=== PATIENT | male | born 1970 | race Caucasian/White ===

== ENCOUNTER 2020-06-26 14:17 | Emergency (ER) | payer OTHER ==
--- OUTSIDE RECORDS SUMMARY | 2020-06-26 14:22 | XMS REPORT | Continuity of Care Document ---
:1970 Author Organization [facility] t Address [address] [place] [address] Care Team Providers Name Role Phone Unavailable Unavailable Unavailable Payers Payer Name Policy Type Policy Number Effective Date Expiration Date S ource Problems Condition Condition Condition Status Onset Resolution Last Treating Co mments Source Name Details Category Date Date Treatment Clinician Date Decreased Decreased Problem Active [facility] testostero testostero [facility] - ne level ne level [facility] Cervical Cervical Diagnosis Active [facility] radiculopa radiculopa [facility] kes - thy thy Memoria l [facility] Gastric Gastric Problem Active [facility] polyps polyps [facility] Chronic Chronic Problem Active [facility] cough cough [facility] Diaphragma Diaphragma Diagnosis Active [facility] tic hernia tic hernia Pauline kes - without without Memoria obstructio obstructio l n or n or Outpati gangrene gangrene ent Clinics Allergic Allergic Problem [facility]initis, [facility]initis, [facility] - seasonal seasonal Memori a l [facility] ent [facility] Decreased Decreased Problem Active [facility] libido libido [facility] Elevated Elevated Problem [facility] blood blood [facility] - pressure pressure Memori a (not (not l hypertensi hypertensi Ou tpati on) on) ent Clinics Erectile Erectile Problem Active [facility] dysfunctio dysfunctio [facility] - n n [facility] Mixed Mixed Problem Active [facility] hyperlipid hyperlipid [facility] kes - emia emia [facility] Anxiety Anxiety Diagnosis Active [facility] disorder, disorder, [facility] - unspecifie unspecifie Me moria d type d type l [facility] Cervical Cervical Diagnosis Active [facility] herniated herniated Luke [facility] - disc disc Memoria l [facility] Partial Partial Diagnosis [facility] tear of tear of [facility] - left left Memoria subscapula subscapula l ris ris Outpati tendon, tendon, ent initial initial Clinics encounter encounter Cervical Cervical Diagnosis Active [facility] stenosis stenosis [facility] - of spinal of spinal Burton eric canal canal l [facility] Screen for Screen for Diagnosis Active [facility] colon colon [facility] - cancer cancer Memoria l [facility] Left Left Diagnosis Active [facility] anterior anterior [facility] - shoulder shoulder Memori a pain pain l [facility] GERD GERD Diagnosis Active [facility] (gastroeso (gastroeso Pauline kes - phageal phageal Memoria reflux reflux l disease) disease) Outpat i ent Clinics Allergies, Adverse Reactions, Alerts Allergy Allergy Status Severity Reaction(s) Onset Inactive Treating Comm ents Source Name Type Date Date Clinician No Known DA Active [facility] Medications Ordered Filled Start Stop Current Ordering Indication Dosage Frequency Signature Comments Components Source Medication Medication Date Date Medication? Clinician (SIG) Name Name Pantoprazol Pantoprazol Yes Suhas [address] [facility] e Sodium e Sodium [facility]a [facility] Tadalafil Tadalafil Yes Suhas take [address] [place] tablet by [facility] - mouth Memoria every day l as needed [facility] Zantac Zantac Yes Suhas 1 tablet [facility] [place] at bedtime [facility] BusPIRone BusPIRone Yes Suhas [address] [facility] HCl HCl Pineda [facility]ics Immunizations Ordered Filled Immunization Date Status Comments Sourc e Immunization Name Name TDAP- Boostrix TDAP- Boostrix 2019-07-[address] [facility] Procedures This patient has no known procedures. Encounters Start End Encounter Admission Attending Care Care Encounter Source Date/Time Date/Time Type Type Clinicians Facility Department ID 2020-05-09 2020-05-09 [facility] [id number] [facility] [place] - Drive [facility] Medicine l Medicine Outpati ent Clinics 2020-03-01 2020-03-01 [facility] [id number] [address] 15:07:00 15:07:[address] Luke [place] - Drive [facility] l Medicine Outpati ent Clinics 2020-01-25 2020-01-25 [facility] [id number] [address] 08:15:[facility] 08:15:[address] Luke [place] - Drive [facility] Medicine l Medicine Outpati ent Clinics 2019-12-09 2019-12-09 [facility] [id number] 15:26:00 15:26:[address] Luke [place] - Drive [facility] l Medicine Outpati ent Clinics 2019-10-28 2019-10-28 [facility] [id number] [address] 12:22:00 12:22:00 [place] [employer] Luke s - Drive [facility] l Medicine Outpati ent Clinics 2019-10-21 2019-10-21 [facility] [id number] [address] 16:05:00 16:05:00 [place] [employer] Luke [place] - Drive [facility] Medicine l Medicine Outpati ent Clinics 2019-10-14 2019-10-14 [facility] [id number] [address] 08:15:00 08:15:00 [place] [employer] Luke [place] - Drive [facility] l Medicine Outpati ent Clinics 2019-10-08 2019-10-08 [facility] [id number] 15:44:00 15:44:[address] Luke s - Drive [facility] Medicine l Medicine Outpati ent Clinics 2019-07-14 2019-07-14 [facility] [id number] 08:00:00 08:00:[address] Luke s - Drive [facility] l Medicine Outpati ent Clinics 2019-03-10 2019-03-10 [facility] [id number] 08:45:00 08:45:[address] Luke [place] - Drive [facility] l Medicine Outpati ent Clinics 2018-12-10 2018-12-10 Outpatient A[facility]el [facility] [id number] [facility] 08:15:00 08:15:00 Rkylin Lulu s [facility] 2018-10-21 2018-10-21 Outpatient [facility] [id number] [facility] 13:36:00 13:36:00 Rkylin Lulu s [facility] 2018-07-29 2018-07-29 Outpatient Azael [facility] [id number] [address] 09:00:00 09:00:00 Rkylin Lulu s [facility] ent [facility] Results Test Description Test Time Test Comments Results Result [facility] jhoan Comments - MRI C-SPINE W 2019-11-26 W/O CONT 14:00:00 Camps: PM St: REG Name: SANDRA CORNELL [facility] : 1970 Age/S: 49/M [address] Unit #: [id number] Loc: [place] [address] Phys: Undefined Provider Acct: [id number] Dis Date: Status: REG CLI PHONE #: [phone] Exam Date: 11/26/2019 1126 FAX #: Reason: CERVICAL RAD EXAMS: CPT: [id number] MRI C-SPINE W W/O CONT [id number] R16 MRI CERVICAL SPINE WITHOUT CONTRAST INDICATION: Cervical radiculopathy TECHNIQUE: Multiplanar multisequence MR images were obtained of the cervical spine without intravenous contrast. COMPARISON: None FINDINGS: Straightening of the normal cervical lordosis. Vertebral bodies are normal in height. There is a normal marrow signal pattern. Moderate loss of disc height at C4-C5 and C5-C6 and mild loss of disc height at C2-C3. Disc heights are otherwise maintained. The cervical cord is normal in caliber, contour and signal intensity. The craniocervical junction is normal. The included intracranial structures are grossly normal. The paraspinal soft tissues are normal. Evaluation of the individual levels: C2-3: Uncovertebral hypertrophy result in mild left neural foraminal stenosis. No significant canal or right neural frontal stenosis. C3-4: Disc osteophyte complex and uncovertebral hypertrophy result in mild spinal canal, moderate right and mild left neural frontal stenosis. C4-5: Disc osteophyte complex, uncovertebral and facet hypertrophy result in moderate spinal canal and severe bilateral neural foraminal stenosis. C5-6: Disc osteophyte complex, ligamentum flavum thickening uncovertebral and facet hypertrophy result in moderate spinal canal, moderate right and severe left neural foraminal stenosis. C6-7: Uncovertebral hypertrophy results in mild left neural foraminal stenosis. No significant spinal canal or right neural foraminal PAGE 1 Signed Report (CONTINUED) Camps: PM St: REG Name: SANDRA CORNELL [facility] : 1970 Age/S: 49/M [address] Unit #: [id number] Loc: [place] [address] Phys: Undefined Provider Acct: [id number] Dis Date: Status: REG CLI PHONE #: [phone] Exam Date: 11/26/2019 1124 FAX #: Reason: CERVICAL RAD EXAMS: CPT: [id number] MRI C-SPINE W W/O CONT [id number] <Continued> stenosis. C7-T1: Disc osteophyte complex and facet hypertrophy result in moderate right and mild left neural foraminal stenosis. No significant spinal canal stenosis. IMPRESSION: Degenerative changes result in up to moderate spinal canal stenosis and moderate to severe neural foraminal stenosis at multiple levels as described above. at 1400 Reported and signed by: Nahid Wood M.D. CC: Technologist: Oksana Sadiki, RT(R)(MR); ... Transcribed Date/Time/By: 11/26/2019 (1400) :[email or web address] Orig Print D/T: S: 11/26/2019 (8444) PAGE 2 Signed Report - MRI UP LEXY Coombs 2019-11-26 CONT LT 12:25:00 Camps: PM St: REG Name: SANDRA CORNELL [facility] Santos : 1970 Age/S: 49/M [address] Unit #: [id number] Loc: [place] [address] Phys: Undefined Provider Acct: [id number] Dis Date: Status: REG CLI PHONE #: [phone] Exam Date: 11/26/2019 1100 FAX #: Reason: LT SHOULDER EXAMS: CPT: [id number] MRI UP [facility] [address] EXAM: MRI shoulder with and without contrast HISTORY: LT SHOULDER COMPARISON: None available TECHNIQUE: Multiplanar multisequence MR imaging of the left shoulder was performed with and without the use of contrast. FINDINGS: BICEPS: The intra-articular portion of the biceps tendon is not well-visualized. LABRUM: Intact. ROTATOR CUFF TENDONS: Supraspinatus: Intact. Infraspinatus: Intact. Subscapularis: High-grade partial-thickness tear involving the superior half of the distal subscapularis tendon. Teres minor: Intact. ACROMIO-OSSEOUS OUTLET: There is a type 2 acromion. Moderate hypertrophic degenerative arthropathy of the AC joint. MUSCLES: Muscle edema involving the superior half of the subscapularis. Muscle bulk is preserved and symmetric. CARTILAGE: No focal defect. BONE: No fracture is identified. Visualized bone marrow signal is within normal limits. SOFT TISSUE: Significant synovitis identified in the subscapularis fossa, subcoracoid bursa, an bicipital groove. IMPRESSION: High-grade partial-thickness tear involving the superior half of the distal subscapularis tendon with associated edema of the superior half of the subscapularis muscle. Nonvisualization of the biceps tendon concerning for complete tear. PAGE 1 Signed Report (CONTINUED) Camps: PM St: REG Name: SANDRA CORNELL [facility] Perry : 1970 Age/S: 49/M [address] Unit #: [id number] Loc: [place] [address] Phys: Undefined Provider Acct: [id number] Dis Date: Status: REG CLI PHONE #: [phone] Exam Date: 11/26/2019 1109 FAX #: Reason: LT SHOULDER EXAMS: CPT: [id number] [place] [address] <Continued> Significant synovitis in the subscapularis fossa, subcoracoid bursa, and bicipital groove. Trace amount of fluid in the subacromial subdeltoid bursa. Moderate hypertrophic degenerative arthropathy of the AC joint. at 1225 Reported and signed by: MERY MICHELE M.D. CC: Technologist: RT Julianna(Ronny)(MR); ... Transcribed Date/Time/By: 11/26/2019 (1815) :[email or web address] Orig Print D/T: S: 11/26/2019 (0098) PAGE 2 Signed Report
--- OUTSIDE RECORDS SUMMARY | 2020-06-26 14:22 | XMS REPORT ---
:1970 Author Organization [employer] Care Team Providers Name Role Phone Edwin Suhas Provider Role Unavailable Allergies, Adverse Reactions, Alerts Substance Reaction Event Type N.K.D.A. Info Not Available Non Drug Allergy Problems Problem Type Condition Code Onset Dates Condition Statu s Assessment Screen for colon cancer Z12.11 Acti ve Assessment Mixed hyperlipidemia E78.2 Active Problem Cervical radiculopathy M54.12 Activ e Assessment Allergic rhinitis, seasonal J30.2 Active Problem Decreased libido R68.82 Active Assessment Erectile dysfunction N52.9 Active Problem Allergic rhinitis, seasonal J30.2 Active Problem Hiatal hernia K44.9 Active Problem Erectile dysfunction N52.9 Active Problem Partial tear of left subscapularis S43.82XA Active tendon, initial encounter Problem Cervical herniated disc M50.20 Acti ve Assessment Left anterior shoulder pain M25.512 Active Assessment Cervical herniated disc M50.20 Acti ve Problem Cervical stenosis of spinal canal M48.02 Active Assessment GERD (gastroesophageal reflux K21.9 Active disease) Problem Elevated blood pressure (not R03.0 Active hypertension) Problem Chronic cough R05 Active Problem Gastric polyps K31.7 Active Problem Decreased testosterone level R79.89 Active Assessment Cervical stenosis of spinal canal M48.02 Active Assessment Cervical radiculopathy M54.12 Activ e Assessment Partial tear of left subscapularis S43.82XA Active tendon, initial encounter Assessment Diaphragmatic hernia without K44.9 Active obstruction or gangrene Problem Mixed hyperlipidemia E78.2 Active Problem Anxiety disorder, unspecified type F41.9 Active Assessment Anxiety disorder, unspecified type F41.9 Active Medications Medication Code Code Instructions Start End Status Dosage System Date Date Pantoprazole [facility] 25797221681 20 MG Orally Active 1 tablet Sodium Once a day Tadalafil ND 50355902006 5 MG Orally Active take 1 Once a day tablet by mouth every day as needed Zantac ND 96518691729 150 MG Orally Active 1 tabl et Once a day at bedtime BusPIRone HCl [facility] 08281579181 15 MG Orally Active 1 tablet Twice a day Results No Known Results Summary Purpose [employer] Submission
[2020-06-26] MEDS ORDERED: NA CHLORIDE 0.9% 500 ML ONE (15:11)
[2020-06-26] MEDS ORDERED: LIDOCAINE VISCOUS 2% SOLN 15 ML UDC ONE (15:11)
[2020-06-26] MEDS ORDERED: MAGNE/ALUM HYDROXD 30 ML UCUP ONE (15:11)
[2020-06-26] MEDS ORDERED: FAMOTIDINE 20 MG/2 ML VIAL IV ONE (15:12)
--- NOTE | 2020-06-26 15:25 | RAD REPORT ---
EXAM DESCRIPTION: Silvana Single View06/26/2020 3:14 pm CLINICAL HISTORY: Chest pain COMPARISON: 2011 FINDINGS: The lungs appear clear of acute infiltrate. The heart is normal size IMPRESSION: No acute abnormalities displayed
[2020-06-26 15:41] LABS: Absolute Lymphocytes (CBC) 1.4 K/uL (0.7-4.9); Basophils % 0.6 % (0-1.3); Hematocrit 43.5 % (39.6-49.0); Lymphocytes % 20.8 % (15.3-44.8); MPV 7.9 fL (7.6-11.3); RBC Red Blood Cell Count 4.92 M/uL (4.33-5.43)
[2020-06-26 15:42] LABS: Protime INR 0.98
[2020-06-26 15:58] LABS: ALT/SGPT 22 U/L (12-78); AST/SGOT 20 U/L (15-37); Alkaline Phosphatase 48 U/L (45-117); BUN Blood Urea Nitrogen 24 mg/dL (7-18); Bicarbonate 26 mmol/L (21-32); Bilirubin Direct 0.1 mg/dL (0-0.2); Bilirubin Total 0.5 mg/dL (0.2-1.0); Glucose Level 87 mg/dL (74-106); Magnesium 2.3 mg/dL (1.8-2.4); NT PRO-BNP 38 pg/mL (<125); Potassium 4.1 mmol/L (3.5-5.1); Protein, Total 6.9 g/dL (6.4-8.2); Sodium Level 141 mmol/L (136-145); Troponin (Emerg Dept Use Only) < 0.02 ng/mL (0.0-0.045)
--- NOTE | 2020-06-26 18:05 | EDPHYS ---
Physician Documentation [facility] Name: Emeka Montero Age: 50 yrs Sex: Male : 1970 Arrival Date: 06/26/2020 Time: 14:21 Bed 8 Private MD: Edwin [facility] ED Physician Bowen Bueno HPI: 06/26 16:27 This 50 yrs old Male presents to ER via Ambulatory with complaints of kdr Difficulty Swallowing, Chest Pain, Mouth Swelling, throat swelling. 16:27 The patient presents with dysphagia. kdr 16:28 The patient relates chest pain since Friday night which he ascribed to his reflux. It kdr has continued since then causing him to have difficulty sleeping and generalized difficulty swallowing. He does not have difficulty breathing nor difficulty swallowing solids and liquids. he is able to swallow his secrections. Onset: The symptoms/episode began/occurred gradually, Friday. Severity of symptoms: At their worst the symptoms were mild just prior to arrival, in the emergency department the symptoms are unchanged. The patient has not experienced similar symptoms in the past. The patient has not recently seen a physician. Pt with history of reflux and that has resulted in similar but no worse chest pain in the same area. Historical: - Allergies: 14:36 No Known Allergies; ll1 - PMHx: 14:36 GERD; ll1 - PSHx: 14:36 None; ll1 - Immunization history:: Adult Immunizations up to date. - Social history:: Smoking status: Patient denies any tobacco usage or history of. ROS: 16:20 Constitutional: Negative for fever, chills, and weight loss, Eyes: Negative for injury, kdr pain, redness, and discharge, Neck: Negative for injury, pain, and swelling, Cardiovascular: Negative for chest pain, palpitations, and edema, Back: Negative for injury and pain, : Negative for injury, bleeding, discharge, and swelling, MS/Extremity: Negative for injury and deformity, Skin: Negative for injury, rash, and discoloration, Neuro: Negative for headache, weakness, numbness, tingling, and seizure activity. Psych: Negative for depression, anxiety, suicide ideation, homicidal ideation, and hallucinations, Allergy/Immunology: Negative for hives, rash, and allergies, Endocrine: Negative for neck swelling, polydipsia, polyuria, polyphagia, and marked weight changes, Hematologic/Lymphatic: Negative for swollen nodes, abnormal bleeding, and unusual bruising. 16:20 ENT: Positive for difficulty swallowing, States he feels like his mouth is dry and it is difficult to swallow. he states that he is able to drink fluids and swallow solids without problem .. Exam: 16:20 Constitutional: This is a well developed, well nourished patient who is awake, alert, kdr and in no acute distress. Head/Face: Normocephalic, atraumatic. Eyes: Pupils equal round and reactive to light, extra-ocular motions intact. Lids and lashes normal. Conjunctiva and sclera are non-icteric and not injected. Cornea within normal limits. Periorbital areas with no swelling, redness, or edema. Neck: Trachea midline, no thyromegaly or masses palpated, and no cervical lymphadenopathy. Supple, full range of motion without nuchal rigidity, or vertebral point tenderness. No Meningismus. Chest/axilla: Normal chest wall appearance and motion. Nontender with no deformity. No lesions are appreciated. Respiratory: Lungs have equal breath sounds bilaterally, clear to auscultation and percussion. No rales, rhonchi or wheezes noted. No increased work of breathing, no retractions or nasal flaring. Back: No spinal tenderness. No costovertebral tenderness. Full range of motion. Skin: Warm, dry with normal turgor. Normal color with no rashes, no lesions, and no evidence of cellulitis. MS/ Extremity: Pulses equal, no cyanosis. Neurovascular intact. Full, normal range of motion. Neuro: Awake and alert, GCS 15, oriented to person, place, time, and situation. Cranial nerves II-XII grossly intact. Motor strength 5/5 in all extremities. Sensory grossly intact. Cerebellar exam normal. Normal gait. Psych: Awake, alert, with orientation to person, place and time. Behavior, mood, and affect are within normal limits. 16:20 Cardiovascular: Rate: bradycardic, Rhythm: regular, Pulses: no pulse deficits are appreciated, Heart sounds: normal, Edema: is not appreciated, JVD: is not appreciated. 16:20 ECG was reviewed by the Attending Physician. Vital Signs: 14:34 BP 132 / 97; Pulse 69; Resp 18; Temp 98.9; Pulse Ox 95% ; Pain 5/10; ll1 15:39 BP 138 / 88; Pulse 67; Resp 18; Pulse Ox 99% on R/A; ph 17:01 BP 137 / 80; Pulse 63; Resp 18; Pulse Ox 98% on R/A; ph 18:10 BP 145 / 94; Pulse 63; Resp 18; Temp 98.0; Pulse Ox 99% on R/A; ph MDM: 18:05 Patient medically screened. kdr 18:21 Data reviewed: vital signs, nurses notes, lab test result(s), radiologic studies. kdr Counseling: I had a detailed discussion with the patient and/or guardian regarding: the historical points, exam findings, and any diagnostic results supporting the discharge/admit diagnosis, lab results, radiology results, the need for outpatient follow up. ED course: The patient was able to eat a dry sandwich without any problem or concern. He was not in any acute distress. 06/26 14:52 Order name: Basic Metabolic Panel kdr 06/26 14:52 Order name: CBC with Diff; Complete Time: 15:50 kdr 06/26 14:52 Order name: LFT's; Complete Time: 16:19 kdr 06/26 14:52 Order name: Magnesium; Complete Time: 16:19 kdr 06/26 14:52 Order name: NT PRO-BNP; Complete Time: 16:19 kdr 06/26 14:52 Order name: PT-INR; Complete Time: 15:50 kdr 06/26 14:52 Order name: Troponin (emerg Dept Use Only); Complete Time: 16:19 kdr 06/26 14:52 Order name: XRAY Chest (1 view); Complete Time: 15:50 kdr 06/26 14:52 Order name: EKG; Complete Time: 14:53 kdr 06/26 14:53 Order name: Basic Metabolic Panel; Complete Time: 16:19 EDMS 06/26 16:57 Order name: Troponin (emerg Dept Use Only); Complete Time: 18:04 kdr 06/26 14:52 Order name: Cardiac monitoring; Complete Time: 16:10 kdr 06/26 14:52 Order name: EKG - Nurse/Tech; Complete Time: 16:10 kdr 06/26 14:52 Order name: IV Saline Lock; Complete Time: 15:28 kdr 06/26 14:52 Order name: Labs collected and sent; Complete Time: 15:28 kdr 06/26 14:52 Order name: O2 Per Protocol; Complete Time: [facility] 06/26 14:52 Order name: O2 Sat Monitoring; Complete Time: [facility] EC:20 Rate is 53 beats/min. Rhythm is regular, Sinus bradycardia with No ectopy. QRS [place] is kdr Normal. UT interval is normal. QRS interval is normal. QT interval is normal. Clinical impression: NSR w/ Non-specific ST/T Changes and Sinus bradycardia. Administered Medications: 15: Drug: GI Cocktail without - (Maalox Suspension 30 ml, Lidocaine Liquid 2 % 15 em ml) Route: PO; 16:00 Follow up: Response: No adverse reaction; Pain is decreased ph 15:27 Drug: Pepcid 20 mg Route: IVP; Site: right antecubital; em 18:11 Follow up: Response: No adverse reaction ph 15:27 Drug: NS 0.9% 500 ml Route: IV; Rate: bolus; Site: right antecubital; em 16:15 Follow up: Response: No adverse reaction; IV Status: Completed infusion; IV Intake: ph 500ml Disposition: 06/26/20 18:05 Discharged to Home. Impression: Other chest pain, Gastro-esophageal reflux disease, Dysphagia, Dysphagia, unspecified. - Condition is Stable. - Discharge Instructions: Nonspecific Chest Pain, Dysphagia. - Medication Reconciliation Form, Thank You Letter form. - Follow up: Suhas Pineda DO; When: 2 - 3 days; Reason: If symptoms return, Further diagnostic work-up, Recheck today's complaints, Continuance of care, Re-evaluation by your physician. - Problem is an acute exacerbation. - Symptoms have improved. Signatures: Dispatcher [employer] EDNJ Bowen Bueno MD MD kdr Munoz, Edgar RN RN Sanjuanita Mane RN RN Jb Hernandez RN RN ll1 Corrections: (The following items were deleted from the chart) 18:35 18:05 06/26/2020 18:05 Discharged to Home. Impression: Other chest pain; ph Gastro-esophageal reflux disease; Dysphagia; Dysphagia, unspecified. Condition is Stable. Forms are Medication Reconciliation Form, Thank You Letter, Antibiotic Education, Prescription Opioid Use. Follow up: Suhas Pineda; When: 2 - 3 days; Reason: If symptoms return, Further diagnostic work-up, Recheck today's complaints, Continuance of care, Re-evaluation by your physician. Problem is an acute exacerbation. Symptoms have improved. kdr
--- NOTE | 2020-06-26 18:05 | ER ---
Nurse's Notes [facility] Name: Emeka Montero Age: 50 yrs Sex: Male : 1970 Arrival Date: 06/26/2020 Time: 14:21 Bed 8 Private MD: Suhas Pineda Diagnosis: Other chest pain;Gastro-esophageal reflux disease;Dysphagia;Dysphagia, unspecified Presentation: 06/26 14:34 Chief complaint: Patient states: Chest tightness started Saturday night with bad ll1 reflux. Started to feel like he had throat swelling and trouble swallowing. Chest tightness and reflux continue today. Slight SOB, dry mouth reported. Coronavirus screen: Client denies travel out of the [place] in the last 14 days. At this time, the client does not indicate any symptoms associated with coronavirus-19. The client reports previous COVID testing was negative. Ebola Screen: Patient denies travel to an Ebola-affected area in the 21 days before illness onset. Initial Sepsis Screen: Does the patient meet any 2 criteria? No. Patient's initial sepsis screen is negative. Risk Assessment: Do you want to hurt yourself or someone else? Patient reports no desire to harm self or others. Onset of symptoms was June 23, 2020. 14:34 Method Of Arrival: Ambulatory ll1 14:34 Acuity: RAKESH 3 ll1 15:39 Initial Sepsis Screen: Does the patient have a suspected source of infection? No. ph Patient's initial sepsis screen is negative. Historical: - Allergies: 14:36 No Known Allergies; ll1 - PMHx: 14:36 GERD; ll1 - PSHx: 14:36 None; ll1 - Immunization history:: Adult Immunizations up to date. - Social history:: Smoking status: Patient denies any tobacco usage or history of. Screenin:09 Abuse screen: Denies threats or abuse. Nutritional screening: No deficits noted. em Tuberculosis screening: No symptoms or risk factors identified. Fall Risk None identified. Assessment: 15:36 General: Appears in no apparent distress. comfortable, slender, well groomed, Behavior ph is calm, cooperative, appropriate for age, Denies fever, feeling ill. Pain: Complains of pain in epigastric area Pain radiates to chest. Neuro: Level of Consciousness is awake, alert, obeys commands, Oriented to person, place, time, situation. Cardiovascular: Reports chest pain, Denies nausea, palpitations, shortness of breath. Respiratory: Airway is patent Respiratory effort is even, unlabored, Respiratory pattern is regular, symmetrical. GI: Reports epigastric pain, Patient currently denies diarrhea, nausea, vomiting. Derm: Skin is intact, is healthy with good turgor, Skin is pink, warm \T\ dry. 16:45 Reassessment: Patient appears in no apparent distress at this time. Patient and/or em family updated on plan of care and expected duration. Pain level reassessed. Patient is alert, oriented x 3, equal unlabored respirations, skin warm/dry/pink. Patient states feeling better. Patient states symptoms have improved. 18:35 Reassessment: Patient appears in no apparent distress at this time. Patient and/or ph family updated on plan of care and expected duration. Pain level reassessed. Patient is alert, oriented x 3, equal unlabored respirations, skin warm/dry/pink. Pt d/c home. Vital Signs: 14:34 BP 132 / 97; Pulse 69; Resp 18; Temp 98.9; Pulse Ox 95% ; Pain 5/10; ll1 15:39 BP 138 / 88; Pulse 67; Resp 18; Pulse Ox 99% on R/A; ph 17:01 BP 137 / 80; Pulse 63; Resp 18; Pulse Ox 98% on R/A; ph 18:10 BP 145 / 94; Pulse 63; Resp 18; Temp 98.0; Pulse Ox 99% on R/A; ph ED Course: 14:21 Patient arrived in ED. mr 14:21 Suhas Pineda DO is Private Physician. mr 14:30 Bowen Bueno MD is Attending Physician. kdr 14:36 Triage completed. ll1 14:36 Arm band placed on Patient placed in an exam room, on a stretcher. ll1 14:59 Sanjuanita Mane, RN is Primary Nurse. ph 15:09 Patient has correct armband on for positive identification. 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 Pulse em ox on. NIBP on. 15:09 Patient maintains SpO2 saturation greater than 95% on room air. em 15:14 XRAY Chest (1 view) In Process Unspecified. EDMS 15:15 Initial lab(s) drawn, by me, sent to lab. Inserted saline lock: 20 gauge in right em antecubital area, using aseptic technique. Blood collected. 18:04 Suhas Pineda DO is Referral Physician. kdr 18:11 No provider procedures requiring assistance completed. IV discontinued, intact, ph bleeding controlled, No redness/swelling at site. Pressure dressing applied. Administered Medications: 15:27 Drug: GI Cocktail without - (Maalox Suspension 30 ml, Lidocaine Liquid 2 % 15 em ml) Route: PO; 16:00 Follow up: Response: No adverse reaction; Pain is decreased ph 15:27 Drug: Pepcid 20 mg Route: IVP; Site: right antecubital; em 18:11 Follow up: Response: No adverse reaction ph 15:27 Drug: NS 0.9% 500 ml Route: IV; Rate: bolus; Site: right antecubital; em 16:15 Follow up: Response: No adverse reaction; IV Status: Completed infusion; IV Intake: ph 500ml Intake: 16:15 IV: 500ml; Total: 500ml. ph Outcome: 18:05 Discharge ordered by . kdr 18:35 Discharged to home ambulatory. ph 18:35 Condition: good 18:35 Discharge instructions given to patient, Instructed on discharge instructions, follow up and referral plans. Demonstrated understanding of instructions, follow-up care. 18:35 Patient left the ED. ph Signatures: Dispatcher [employer] Bowen Gomez MD MD [facility] Orquidea Oconnor Jayce Nazario, RN RN Sanjuanita Mane RN RN Jb Hernandez RN RN [facility]
--- NOTE | 2020-06-27 10:45 | EKG ---
Test Date: 2020-06-26 Test Time: 15:53:20 Status Controller: JOHN MEASUREMENT RESULTS: Intervals: Rate: 53 W[place]: 184 QRSD: 90 QT: 438 QTc: 410 [place]: P: 58 W[place]: 184 QRS: 18 T: 40 INTERPRETIVE STATEMENTS: Sinus bradycardia Otherwise normal ECG Compared to ECG 10/19/2010 18:56:18 Sinus tachycardia no longer present T-wave abnormality no longer present Electronically Signed On 06-27-20 10:43:32 CDT by Jose Ochoa
[2020-07-01 02:26] VITALS: BP 145/94; TEMP 98; O2SAT 99
== END 2020-06-26 18:35 | disposition home or self-care (01) ==
LOC: ER 14:17
DX: K21.9 Gastro-esophageal reflux disease without esophagitis (principal); R13.10 Dysphagia, unspecified
CPT/HCPCS: 96361; 93005; 85025; 80048; 36415; 83735; 85610; 80076; 84484 ×2; 83880; 71045; 96374; 99285; J7040